=== PATIENT | female | born 1950 | race Hispanic/Latino ===

== ENCOUNTER 2021-12-15 01:09 | Emergency (ER) | payer OTHER, MEDICARE ==
[~2021-12-15] VITALS: Ht 160 cm; Wt 64.4 kg
[2021-12-15] MEDS ORDERED: LISINOPRIL 5 MG TABLET PO SCH (02:00)
[2021-12-15] MEDS ORDERED: LISINOPRIL 5 MG TABLET ONE (02:11)
[2021-12-15] MEDS ORDERED: CLONIDINE HCL 0.2 MG TABLET PO ONE (03:30)
[2021-12-15 04:40] VITALS: BP 111/54
== END 2021-12-15 04:43 | disposition home or self-care (01) ==
LOC: EDH 01:09
DX: I16.0 Hypertensive urgency (principal); E78.00 Pure hypercholesterolemia, unspecified
CPT/HCPCS: 93005

== ENCOUNTER → 2024-11-27 | Outpatient (CLI) | payer OTHER, MEDICARE ==
[~2024-11-27] MED LIST: IOHEXOL-350 75 ML VIAL IV ONE
--- NOTE | 2024-11-28 12:24 | HMCIMG ---
EXAM: CT Head with and without Intravenous Contrast. CLINICAL HISTORY: Headache, unspecified TECHNIQUE: Axial computed tomography images of the head/brain with and without intravenous contrast. CONTRAST: With intravenous contrast. COMPARISON: None provided. FINDINGS: BRAIN No evidence of acute hemorrhage. No mass lesion. No abnormal enhancement. No CT evidence for acute territorial infarct. No midline shift or extra-axial collections. Generalized cerebral atrophy with chronic white matter ischemic changes. VENTRICLES: No hydrocephalus. ORBITS: The orbits are unremarkable. SINUSES AND MASTOIDS: The paranasal sinuses and mastoid air cells are clear. BONES: No fracture. Pneumatization of features effects on either side IMPRESSION: 1. No acute intracranial findings. 2. Chronic ischemic and atrophic changes. /[place]
--- NOTE | 2024-11-28 14:03 | HMCIMG ---
EXAM: CT Cervical Spine with and Without IV contrast. CLINICAL HISTORY: Cervicalgia TECHNIQUE: Axial computed tomography images of the cervical spine without intravenous contrast. Sagittal and coronal reformatted images were generated. COMPARISON: None provided. FINDINGS: ALIGNMENT: Loss of cervical lordosis DEGENERATIVE CHANGES: Anterior cervical discectomy and fusion (ACDF) at C5-C6 levels with screws, anterior plate, and intervertebral disc space cage. Orthopedic hardware remains in situ. SOFT TISSUES: The prevertebral soft tissues are within normal limits. Hypodense areas in both lobes of the thyroid gland, the largest measuring in right lobe measuring approximately 6 x 5 mm. advised USG correlation BONES: No acute fracture or aggressive appearing osseous lesion. IMPRESSION: 1. No acute cervical spine findings. 2. Anterior cervical discectomy and fusion (ACDF) at C5-C6 with hardware in situ. 3. Straightening of the cervical spine which may be positional or may be due to paraspinal muscle spasm. /[place]
== END | disposition home or self-care (01) ==
LOC: RAH 09:42
PROVIDERS: ATTEND Family Medicine
DX: I67.82 Cerebral ischemia (principal); G31.9 Degenerative disease of nervous system, unspecified; M43.22 Fusion of spine, cervical region; R51.9 Headache, unspecified; M54.2 Cervicalgia; Z98.890 Other specified postprocedural states
CPT/HCPCS: 70470; 72127; Q9967

== ENCOUNTER → 2024-12-23 | Outpatient (CLI) | payer OTHER, MEDICARE ==
--- NOTE | 2024-12-24 07:28 | HMCIMG ---
EXAMINATION: ULTRASOUND OF THE THYROID. CLINICAL HISTORY: Abnormal findings on diagnostic imaging. COMPARISON: None. TECHNIQUE: Transverse and longitudinal images were obtained through both lobes and the isthmus of the thyroid. FINDINGS: The thyroid gland is normal in caliber with homogenous tissue echotexture. The right thyroid lobe measures 4.4 x 1.8 x 1.7 cm and the left thyroid lobe measures 4.1 x 1.6 x 1.4 cm in the craniocaudal, AP, and transverse dimensions respectively. The isthmus measures 0.3 cm in AP dimension. Right lobe: There is a heteroechoic solid nodule that measures 1.3 x 0.9 x 1.2 cm in the mid pole (TR4). There are cystic nodules that measure 0.3 cm, 0.2 cm, and 0.2 cm at the mid pole (TR1). There is a cystic nodule that measures 0.2 cm at the lower pole (TR1). Left lobe: There is a heteroechoic solid nodule that measures 1.4 x 1.1 x 1.2 cm in the lower pole (TR4). There is a cystic nodule that measures 0.5 x 0.3 x 0.2 cm at the upper pole (TR1). There is a cystic nodule that measures 0.3 x 0.3 x 0.3 cm at the lower pole (TR1). No significantly enlarged lymph nodes. IMPRESSION: Nodules in both lobes of the thyroid. TI-RADS follow up recommendations: TR1: no FNA required TR2: no FNA required TR3: more than or equal to 1.5 cm follow up, more than or equal to 2.5 cm FNA follow up: 1, 3 and 5 years TR4: more than or equal to 1.0 cm follow up, more than or equal to 1.5 cm FNA follow up: 1, 2, 3 and 5 years TR5: more than or equal to 0.5 cm follow up, more than or equal to 1.0 cm FNA annual follow up for up to 5 years /[place]
== END | disposition home or self-care (01) ==
LOC: RAH 15:36
PROVIDERS: ATTEND Family Medicine
DX: E04.2 Nontoxic multinodular goiter (principal); R93.89 Abnormal findings on diagnostic imaging of other specified body structures
CPT/HCPCS: 76536